=== PATIENT | male | born 1960 | race Caucasian/White ===

== ENCOUNTER 2020-07-21 14:39 | Emergency (ER) | payer OTHER ==
[~2020-07-21] VITALS: Ht 175.3 cm; Wt 100.0 kg
[2020-07-21] MEDS ORDERED: SIMV20TA22 PO (15:10)
[2020-07-21] MEDS ORDERED: ASPI81CH33 PO (15:10)
[2020-07-21 15:13] LABS: BASO # 0.1 10^3/uL (0.0-0.2); BASO % 0.6 % (0.0-1.0); EOS # 0.4 10^3/uL (0.0-0.5); EOS % 2.8 % (0.0-3.0); HEMATOCRIT 44.1 % (42.0-52.0); HEMOGLOBIN 15.5 g/dl (13.5-17.5); LYMPH # 4.7 10^3/uL (1.5-5.0); LYMPH % 37.7 % (24.0-44.0); MEAN CORPUSCULAR HEMOGLOBIN 31.6 pg (27.0-33.0); MEAN CORPUSCULAR HGB CONC 35.1 g/dl (32.0-36.5); MEAN CORPUSCULAR VOLUME 89.8 fl (80.0-96.0); MONO # 0.9 10^3/uL (0.0-0.8); MONO % 7.5 % (2.0-8.0); NEUTROPHILS # 6.3 10^3/uL (1.5-8.5); NEUTROPHILS % 51.2 % (36.0-66.0); PLATELET COUNT, AUTOMATED 273 10^3/uL (150-450); RED BLOOD COUNT 4.91 10^6/uL (4.30-6.10); WHITE BLOOD COUNT 12.4 10^3/uL (4.0-10.0)
[2020-07-21] MEDS ORDERED: ISOVUE-370 76% 100ML VIAL As Ordered ONE (15:20)
[2020-07-21 15:24] LABS: INR 0.95; PROTHROMBIN TIME 12.9 SECONDS (12.5-14.3)
--- NOTE | 2020-07-21 15:31 | REP ---
INDICATION: CHEST PAIN. COMPARISON: None. TECHNIQUE: SINGLE PORTABLE AP VIEW OF THE CHEST WAS PERFORMED. FINDINGS: THERE IS NO ACUTE INFILTRATE OR PULMONARY EDEMA. LUNGS ARE CLEAR. HEART IS NOT SIGNIFICANTLY ENLARGED. MEDIASTINAL SILHOUETTE IS UNREMARKABLE. THE VISUALIZED OSSEOUS STRUCTURES ARE INTACT. IMPRESSION: NO ACUTE PULMONARY DISEASE. <Electronically signed by Royer Angel > 07/21/20 [id number]
[2020-07-21 15:44] LABS: ALBUMIN 4.2 GM/DL (3.2-5.2); ALT/SGPT 21 U/L (12-78); BILIRUBIN,DIRECT < 0.1 MG/DL (0.0-0.2); BILIRUBIN,TOTAL 0.3 MG/DL (0.2-1.0); CK-MB VALUE MASS 1.8 NG/ML (<3.6); CPK CREATINE PHOSPHOKINASE 158 U/L (39-308); LIPASE 99 U/L (73-393); MB/CK RELATIVE INDEX 1.14 (< OR =4); TROPONIN I < 0.02 NG/ML (< 0.10)
--- NOTE | 2020-07-21 15:57 | REP ---
INDICATION: PE. COMPARISON: None. TECHNIQUE: CT angiogram chest performed following the intravenous administration of 100 cc of Isovue 370. Sagittal and coronal reconstruction images are performed. FINDINGS: Lungs: There is thickening along the right minor fissure. There is a 4 mm nodule in the right posterior costophrenic sulcus. There is no acute infiltrate. Mediastinum: No adenopathy. Pulmonary arteries: No evidence of pulmonary embolism. Maddie: No adenopathy. Axilla: No adenopathy. Pleura: No effusion. Heart: Not enlarged. Thoracic aorta: No aneurysm or dissection. Upper abdominal structures: There is a 1 cm cyst of the upper pole the left kidney. Visualized osseous structures: There are mild degenerative changes of the spine. IMPRESSION: No CT evidence of pulmonary embolism. No infiltrate seen. 4 mm nodule right lower lobe. One year follow-up CT would be recommended only if the patient is at high risk for cancer. <Electronically signed by Royer Angel > 07/21/20 0145
[2020-07-21 18:44] LABS: CK-MB VALUE MASS 1.4 NG/ML (<3.6); CPK CREATINE PHOSPHOKINASE 143 U/L (39-308); MB/CK RELATIVE INDEX 0.98 (< OR =4); TROPONIN I < 0.02 NG/ML (< 0.10)
[2020-07-21 18:45] VITALS: BP 117/69
--- NOTE | 2020-07-21 22:28 | ECGEPIP ---
[facility] - ED Test Date: 2020-07-21 Pat Name: JAZMINE BERRIOS Department: Room: - Gender: Male [employer]: TODD : 1960 Requested By: Gail Kirk Order Number: [id number] Reading MD: Ricky Gottlieb Measurements Intervals [place] Rate: 70 P: 71 NM: 194 QRS: 30 QRSD: 94 T: 23 QT: 386 QTc: 416 Interpretive Statements Normal sinus rhythm Comparison tracing not on file Electronically Signed on 07-21-2020 22:28:35 EDT by Ricky Gottlieb
== END 2020-07-21 18:53 | disposition home or self-care (01) ==
LOC: M ED 14:39
DX: R07.81 Pleurodynia (principal); R91.1 Solitary pulmonary nodule; R06.02 Shortness of breath; E78.5 Hyperlipidemia, unspecified; Z85.828 Personal history of other malignant neoplasm of skin; F17.200 Nicotine dependence, unspecified, uncomplicated; Z79.82 Long term (current) use of aspirin; Z79.899 Other long term (current) drug therapy
CPT/HCPCS: 36415; 71045; 71275; 80047; 80076; 82550; 82553; 83690; 85025; 85610; 93005; 93041; 94760; 99285; Q9967

== ENCOUNTER 2020-11-04 09:29 | Emergency (ER) | payer OTHER ==
[~2020-11-04] VITALS: Ht 175.3 cm; Wt 90.9 kg
[2020-11-04 09:29] VITALS: BP 156/87
[~2020-11-04 09:29] MED LIST: ASPI81CH33 PO; SIMV20TA22 PO
[2020-11-04] MEDS ORDERED: diphenhydrAMINE 50MG CAP PO ONE (10:30)
[2020-11-04] MEDS ORDERED: predniSONE 20 MG TAB PO ONE (10:30)
[2020-11-04] MEDS ORDERED: PRED20TA PO (10:39)
[2020-11-04] MEDS ORDERED: BENA25CA4 PO (10:40)
== END 2020-11-04 11:06 | disposition home or self-care (01) ==
LOC: M ED 09:29
DX: L23.7 Allergic contact dermatitis due to plants, except food (principal); E78.5 Hyperlipidemia, unspecified; B18.2 Chronic viral hepatitis C; Z79.82 Long term (current) use of aspirin; Z79.899 Other long term (current) drug therapy
CPT/HCPCS: 99282; J7512